=== PATIENT | female | born 1965 | race Caucasian/White ===

== ENCOUNTER 2022-01-29 15:56 | Emergency (ER) | payer OTHER ==
[~2022-01-29] VITALS: Ht 160 cm; Wt 73.1 kg
[2022-01-29] MEDS ORDERED: AMLODIPINE BESY10 MG PO (16:11)
[2022-01-29] MEDS ORDERED: LEVOTHYROXINE50 MCG PO (16:11)
[2022-01-29] MEDS ORDERED: QUETIAPINE FUMA25 MG PO (16:11)
[2022-01-29] MEDS ORDERED: LOSARTAN POTASS25 MG PO (16:11)
[2022-01-29] MEDS ORDERED: AMOX TR-K CLV1 EAC2 PO (16:36)
[2022-01-29] MEDS ORDERED: KETOROLAC TROMETHAMINE 60 MG/2 ML VIAL IM ONE (16:45)
[2022-01-29] MEDS ORDERED: KETOROLAC TROMETHAMINE 30 MG/ML VIAL ONE (16:48)
== END 2022-01-29 16:54 | disposition home or self-care (01) ==
LOC: FSED 16:20
DX: J01.90 Acute sinusitis, unspecified (principal); H66.92 Otitis media, unspecified, left ear; H69.80 Other specified disorders of Eustachian tube, unspecified ear; I10 Essential (primary) hypertension; E03.9 Hypothyroidism, unspecified; Z79.899 Other long term (current) drug therapy
CPT/HCPCS: 96372; 99283; J1885